=== PATIENT | male | born 1975 | race Caucasian/White ===

== ENCOUNTER 2019-10-05 10:48 | Outpatient (REF) | payer OTHER, SELFPAY ==
[2019-10-05 21:55] LABS: Calculated LDL 80 mg/dL (<100); Cholesterol 136 mg/dL (<200); Glucose 84 mg/dL (74-106); HDL Cholesterol 41 mg/dL (40-60); Triglyceride 78 mg/dL (<150)
[2019-10-09 10:00] LABS: PSA, Screening 0.5 ng/mL (0.0-2.5)
== END 2019-10-05 11:08 ==
LOC: NCHCN 10:48
PROVIDERS: PCP Family Medicine; Visit Provider Family Medicine
DX: Z00.00 Encounter for general adult medical examination without abnormal findings (principal); Z80.42 Family history of malignant neoplasm of prostate; Z12.5 Encounter for screening for malignant neoplasm of prostate
CPT/HCPCS: 80061; 82947; 84153

== ENCOUNTER 2022-06-05 16:11 | Outpatient (REF) | payer OTHER, SELFPAY ==
[2022-06-05 20:23] LABS: HCT 46.4 % (40.0-50.0); HGB 16.1 g/dL (13.5-17.5); MCH 31.1 pg (27.0-33.0); MCHC 34.7 % (32.0-36.0); MCV 90 fL (80-95); MPV 11.1 fL (8.0-11.0); Platelet Count 286 10^3/uL (130-400); RBC 5.18 10^6/uL (4.36-5.78); RDW 12.6 % (11.8-14.1); RDW-SD 40.9 fL; WBC 8.13 10^3/uL (4.4-10.8)
[2022-06-05 20:31] LABS: ALT 32 U/L (16-63); AST 29 U/L (15-37); Albumin 4.1 g/dL (3.4-5.0); Alkaline Phosphatase 94 U/L (46-116); Anion Gap 8.2 mmol/L (3-11); BUN 23 mg/dL (7-18); Bilirubin, Total 0.4 mg/dL (0.2-1.0); C-Reactive Protein 0.11 mg/dL (0.0-0.3); CO2 28.8 mmol/L (21.0-32.0); CREATININE 0.8 mg/dL (0.70-1.30); Chloride 105 mmol/L (98-107); Estimated GFR 109.17 (mL/min/1.73m2); Glucose 93 mg/dL (74-106); Potassium 4.4 mmol/L (3.5-5.1); Sodium 142 mmol/L (136-145); Total Protein 7.3 g/dL (6.4-8.2)
== END 2022-06-05 16:12 | disposition home or self-care (01) ==
LOC: NCHCN 16:11
PROVIDERS: PCP Family Medicine; Visit Provider Family Medicine
DX: K51.90 Ulcerative colitis, unspecified, without complications (principal)
CPT/HCPCS: 80053; 85027; 86140

== ENCOUNTER 2022-12-02 16:36 | Outpatient (REF) | payer OTHER, SELFPAY ==
[2022-12-02 18:28] LABS: Abs Immature Grans 0.01 10^3/uL (0.0-0.06); Absolute Basophil Count 0.05 10^3/uL (0.0-0.2); Absolute Eosinophil Count 0.25 10^3/uL (0.0-0.7); Absolute Monocyte Count 0.52 10^3/uL (0.1-0.8); Absolute Neutrophil Count 3.45 10^3/uL (1.2-6.7); Basophils % 0.8; HCT 47.6 % (40.0-50.0); HGB 16.5 g/dL (13.5-17.5); Immature Grans % 0.2; Lymphocytes % 30.7; MCH 31.5 pg (27.0-33.0); MCHC 34.7 % (32.0-36.0); MCV 91 fL (80-95); MPV 11.3 fL (8.0-11.0); Monocytes % 8.4; Neutrophils % 55.9; Platelet Count 278 10^3/uL (130-400); RBC 5.24 10^6/uL (4.36-5.78); RDW 12.6 % (11.8-14.1); RDW-SD 40.8 fL; WBC 6.18 10^3/uL (4.4-10.8)
[2022-12-02 18:37] LABS: ALT 30 U/L (16-63); AST 29 U/L (15-37); Albumin 3.9 g/dL (3.4-5.0); Alkaline Phosphatase 79 U/L (46-116); Amylase 30 U/L (25-115); Bilirubin, Direct 0.1 mg/dL (0.0-0.2); Bilirubin, Total 0.7 mg/dL (0.2-1.0); C-Reactive Protein 0.09 mg/dL (0.0-0.3); Total Protein 7.3 g/dL (6.4-8.2)
[2022-12-07 14:13] LABS: Adalimumab QN with Reflex Ab 12.3 mcg/mL
== END 2022-12-02 16:37 | disposition home or self-care (01) ==
LOC: LBN 16:36
PROVIDERS: PCP Family Medicine; Visit Provider Internal Medicine Gastroenterology
DX: K51.00 Ulcerative (chronic) pancolitis without complications (principal)
CPT/HCPCS: 80076; 83520; 82150; 85025; 86140

== ENCOUNTER 2024-03-08 08:30 | Outpatient (REF) | payer OTHER, SELFPAY ==
[2024-03-08 16:07] LABS: ALT 33 U/L (16-63); AST 24 U/L (15-37); Albumin 3.7 g/dL (3.4-5.0); Alkaline Phosphatase 88 U/L (46-116); Anion Gap 7.7 mmol/L (3-11); BUN 15 mg/dL (7-18); Bilirubin, Total 0.63 mg/dL (0.2-1.0); CO2 28.3 mmol/L (21.0-32.0); Calculated LDL 55 mg/dL (<100); Chloride 106 mmol/L (98-107); Cholesterol 115 mg/dL (<200); Estimated GFR 91.69 (mL/min/1.73m2); Glucose 91 mg/dL (74-106); HDL Cholesterol 46 mg/dL (40-60); Potassium 4.4 mmol/L (3.5-5.1); Sodium 142 mmol/L (136-145); TSH (W/Ref FT4) 2.19 uIU/mL (0.36-3.74); Total Protein 7.1 g/dL (6.4-8.2); Triglyceride 70 mg/dL (<150); Vitamin D 25 Total 37.3 ng/mL (30-100)
[2024-03-17 15:08] LABS: Testosterone, Free 13.2 ng/dL (4.06-15.6); Testosterone, Total 525 ng/dL (240-950)
== END 2024-03-08 08:31 | disposition home or self-care (01) ==
LOC: NCHCN 08:30
PROVIDERS: PCP Family Medicine; Visit Provider Family Medicine
DX: Z00.00 Encounter for general adult medical examination without abnormal findings (principal); F52.21 Male erectile disorder
CPT/HCPCS: 80053; 80061; 82306; 84402; 84403; 84443

== ENCOUNTER 2024-06-15 10:27 | Outpatient (REF) | payer OTHER, SELFPAY ==
[2024-06-15 22:31] LABS: PSA, Screening 0.6 ng/mL (<=3.5)
== END 2024-06-15 10:28 | disposition home or self-care (01) ==
LOC: NCHCN 10:27
PROVIDERS: PCP Family Medicine; Visit Provider Family Medicine
DX: Z12.5 Encounter for screening for malignant neoplasm of prostate (principal)
CPT/HCPCS: 84153

== ENCOUNTER 2025-06-19 17:49 | Outpatient (REF) | payer OTHER, SELFPAY ==
[2025-06-19 18:21] LABS: ALT 25 U/L (16-63); AST 30 U/L (15-37); Albumin 3.9 g/dL (3.4-5.0); Alkaline Phosphatase 99 U/L (46-116); Anion Gap 7.5 mmol/L (3-11); BUN 18 mg/dL (7-18); Bilirubin, Total 0.6 mg/dL (0.2-1.0); CO2 28.5 mmol/L (21.0-32.0); Calcium 8.9 mg/dL (8.5-10.1); Chloride 104 mmol/L (98-107); Cholesterol 125 mg/dL (<200); Glucose 84 mg/dL (74-106); HDL Cholesterol 42 mg/dL (>or=40); Potassium 4.3 mmol/L (3.5-5.1); Sodium 140 mmol/L (136-145); Total Protein 7.9 g/dL (6.4-8.2)
[2025-06-20 18:38] LABS: Vitamin D 25 Total 36 ng/mL (30-100)
== END 2025-06-19 17:50 | disposition home or self-care (01) ==
LOC: NCHCN 17:49
PROVIDERS: PCP Family Medicine; Visit Provider Family Medicine
DX: Z00.00 Encounter for general adult medical examination without abnormal findings (principal); K51.90 Ulcerative colitis, unspecified, without complications
CPT/HCPCS: 80053; 80061; 82306; 82652